=== PATIENT | female | born 1940 | race Caucasian/White ===

== ENCOUNTER 2020-02-04 11:29 | Inpatient (IN) ==
[2020-02-04 12:12] LABS: Basophils % 0.2 %; Eosinophils % 0.1 %; Hematocrit 39.6 % (35.3-44.9); Hemoglobin 13.7 g/dL (11.5-15.4); Immature Granulocytes % 0.8 % (0-4); Lymphocytes % 4.9 %; Mean Corpuscular HGB Conc 34.6 g/dL (31.6-35.5); Mean Corpuscular Hemoglobin 32.5 pg (28.0-33.3); Mean Corpuscular Volume 93.8 fL (83.0-100.0); Mean Platelet Volume 10.9 fL (9.4-12.4); Monocytes # 1.1 K/mcL (0.0-1.3); Monocytes % 5.7 %; Neutrophils # 17.1 K/mcL (1.6-8.9); Platelet Count 183 K/mcL (140-400); Red Blood Count 4.22 M/mcL (3.82-4.97); Segmented Neutrophils % 88.3 %; White Blood Count 19.4 K/mcL (4.3-11.1)
[2020-02-04 12:24] LABS: BUN/Creatinine Ratio 24 (6-26); Blood Urea Nitrogen 62 mg/dL (8-23); Calcium 8.8 mg/dL (8.6-10.3); Carbon Dioxide 20 mEq/L (23-29); Chloride 95 mEq/L (98-107); Glucose 410 mg/dL (70-105); Osmolality,Calculated 313 (280-300); Potassium 2.9 mEq/L (3.5-5.1); Sodium 134 mEq/L (136-145); eGFR For African Americans 21 (> 60); eGFR For Non-African Americans 18 (> 60)
[2020-02-04 12:25] LABS: Troponin I < 0.03 ng/mL (< 0.04)
[2020-02-04] MEDS ORDERED: 0.9 % Sodium Chloride 500 ML IVC ONE (12:27)
[2020-02-04] MEDS ORDERED: Insulin Regular, Human 100 UNIT/ML SQ ONE (12:44)
[2020-02-04] MEDS ORDERED: Naloxone 0.4 MG/ML INJ IVP PRN (14:52)
[2020-02-04] MEDS ORDERED: Mag Hydrox/Al Hydrox/Simeth 30 ML UDC PO PRN (14:52)
[2020-02-04] MEDS ORDERED: Ondansetron ODT 4 MG TAB.RAPDIS SL PRN (14:52)
[2020-02-04] MEDS ORDERED: Dextrose Gel 15 GM/37.5 ML TUBE PO PRN ×2 (14:54)
[2020-02-04] MEDS ORDERED: D5% in Water 1,000 ML IVC PRN (14:54)
[2020-02-04] MEDS ORDERED: *HR* Dextrose 50 % in Water (Vial) 50 ML VIAL IVP PRN (14:54)
[2020-02-04] MEDS: 0.9 % Sodium Chloride 1,000 ML IVC SCH (16:44)
[2020-02-04] MEDS: Aspirin 325 MG TABLET PO SCH (16:44)
[2020-02-04] MEDS: Insulin LISPRO 300 UNITS/3 ML VIAL SQ SCH ×2 (16:45→20:01)
[2020-02-04 17:20] LABS: Bilirubin,Urine Negative (Negative); Blood,Urine Large (Negative); Clarity,Urine Turbid (Clear); Color,Urine Yellow (Yellow); Glucose,Urine (UA) Normal (Normal); Ketones,Urine Negative (Negative); Leukocyte Esterase,Urine Large (Negative); Nitrite,Urine Negative (Negative); Protein,Urine 100 mg/dL (Neg-Trace); Specific Gravity,Urine 1.025 (1.010-1.025); Urobilinogen,Urine Normal (Normal)
[2020-02-04 18:11] LABS: Bacteria,Urine Many per hpf (None-Few); RBC,Urine 30-50 per hpf (0-3); Renal Epithelial Cells,Urine Moderate per hpf (None-Few); Squamous Epithelial Cell,Urine Moderate per lpf (None-Few); WBC,Urine TNTC per hpf (0-3)
[2020-02-04] MEDS ORDERED: *HR* Heparin 5,000 UNIT/ML VIAL ONE (18:38)
[2020-02-04] MEDS: *HR* Heparin 5,000 UNIT/ML VIAL SQ SCH (18:39)
[2020-02-04 20:48] LABS: Estimated Average Glucose 177 mg/dl; Hemoglobin A1C 7.8 %
[2020-02-05] MEDS: 0.9 % Sodium Chloride 1,000 ML IVC SCH ×4 (03:01→21:10)
[2020-02-05] MEDS: *HR* Heparin 5,000 UNIT/ML VIAL SQ SCH ×2 (05:57→16:44)
[2020-02-05] MEDS: cefTRIAXone 2,000 MG in 0.9 % Sodium Chloride Mini Bag 100 ML IVPB SCH (07:54)
[2020-02-05] MEDS: Aspirin 325 MG TABLET PO SCH (07:55)
[2020-02-05] MEDS: Cholecalciferol (D-3) 1,000 UNIT (25MCG) TABLET PO SCH (07:55)
[2020-02-05] MEDS: Insulin LISPRO 300 UNITS/3 ML VIAL SQ SCH ×4 (07:55→21:10)
[2020-02-05 08:00] LABS: Basophils % 0.2 %; Eosinophils % 0.3 %; Hematocrit 34.2 % (35.3-44.9); Immature Granulocytes % 0.5 % (0-4); Lymphocytes # 1.1 K/mcL (0.6-4.6); Lymphocytes % 9.5 %; Mean Corpuscular HGB Conc 35.1 g/dL (31.6-35.5); Mean Corpuscular Hemoglobin 32.6 pg (28.0-33.3); Mean Corpuscular Volume 92.9 fL (83.0-100.0); Mean Platelet Volume 10.7 fL (9.4-12.4); Monocytes # 1.2 K/mcL (0.0-1.3); Monocytes % 10.1 %; Neutrophils # 9.1 K/mcL (1.6-8.9); Platelet Count 135 K/mcL (140-400); Red Blood Count 3.68 M/mcL (3.82-4.97); Red Cell Distribution Width 11.9 % (11.5-14.5); Segmented Neutrophils % 79.4 %; White Blood Count 11.4 K/mcL (4.3-11.1)
[2020-02-05 08:41] LABS: Calcium 8.2 mg/dL (8.6-10.3); Potassium 2.7 mEq/L (3.5-5.1)
[2020-02-05 09:48] LABS: Chol/HDL Ratio 6.4 (0-4.9)
[2020-02-05] MEDS ORDERED: 0.9 % Sodium Chloride 500 ML IV ONE (11:20)
[2020-02-05] MEDS: Insulin DETEMIR 100 UNIT/ML X5UNITS SQ SCH (21:09)
[2020-02-06] MEDS: *HR* Heparin 5,000 UNIT/ML VIAL SQ SCH ×2 (05:37→17:53)
[2020-02-06] MEDS: 0.9 % Sodium Chloride 1,000 ML IVC SCH (05:37)
[2020-02-06 08:05] LABS: Hemoglobin 12.1 g/dL (11.5-15.4); Mean Corpuscular HGB Conc 34.6 g/dL (31.6-35.5); Mean Corpuscular Hemoglobin 32.4 pg (28.0-33.3); Mean Corpuscular Volume 93.6 fL (83.0-100.0); Mean Platelet Volume 10.4 fL (9.4-12.4); Platelet Count 131 K/mcL (140-400); Red Blood Count 3.74 M/mcL (3.82-4.97); Red Cell Distribution Width 11.9 % (11.5-14.5); White Blood Count 10.8 K/mcL (4.3-11.1)
[2020-02-06 08:21] LABS: Calcium 8.3 mg/dL (8.6-10.3); Potassium 3.1 mEq/L (3.5-5.1)
[2020-02-06] MEDS: cefTRIAXone 2,000 MG in 0.9 % Sodium Chloride Mini Bag 100 ML IVPB SCH (09:05)
[2020-02-06] MEDS: Aspirin 325 MG TABLET PO SCH (09:07)
[2020-02-06] MEDS: Cholecalciferol (D-3) 1,000 UNIT (25MCG) TABLET PO SCH (09:07)
[2020-02-06] MEDS: Insulin LISPRO 300 UNITS/3 ML VIAL SQ SCH ×4 (09:08→20:27)
[2020-02-06 10:16] LABS: Bilirubin,Urine Negative (Negative); Blood,Urine Trace-intact (Negative); Clarity,Urine Slightly Cloudy (Clear); Glucose,Urine (UA) Normal (Normal); Ketones,Urine Negative (Negative); Leukocyte Esterase,Urine Moderate (Negative); Nitrite,Urine Negative (Negative); PH,Urine 5.5 pH Units (5.0-8.0); Protein,Urine Negative (Neg-Trace); Specific Gravity,Urine 1.015 (1.010-1.025); Urobilinogen,Urine Normal (Normal)
[2020-02-06 10:24] LABS: Color,Urine Light Yellow (Yellow)
[2020-02-06 10:25] LABS: Bacteria,Urine Moderate per hpf (None-Few); RBC,Urine 0-3 per hpf (0-3); Squamous Epithelial Cell,Urine Few per lpf (None-Few); WBC,Urine 50-100 per hpf (0-3)
[2020-02-06] MEDS: Insulin DETEMIR 100 UNIT/ML X5UNITS SQ SCH (20:26)
[2020-02-07] MEDS: *HR* Heparin 5,000 UNIT/ML VIAL SQ SCH (05:55)
[2020-02-07 06:47] VITALS: BP 122/77
[2020-02-07 07:45] LABS: Hematocrit 33.1 % (35.3-44.9); Hemoglobin 11.9 g/dL (11.5-15.4); Mean Corpuscular Hemoglobin 33.1 pg (28.0-33.3); Mean Corpuscular Volume 91.9 fL (83.0-100.0); Mean Platelet Volume 10.4 fL (9.4-12.4); Platelet Count 125 K/mcL (140-400); Red Cell Distribution Width 11.7 % (11.5-14.5); White Blood Count 8.5 K/mcL (4.3-11.1)
[2020-02-07] MEDS: Aspirin 325 MG TABLET PO SCH (08:31)
[2020-02-07] MEDS: Cholecalciferol (D-3) 1,000 UNIT (25MCG) TABLET PO SCH (08:32)
[2020-02-07] MEDS: Insulin LISPRO 300 UNITS/3 ML VIAL SQ SCH (08:33)
[2020-02-07] MEDS: cefTRIAXone 2,000 MG in 0.9 % Sodium Chloride Mini Bag 100 ML IVPB SCH (08:33)
[2020-02-07 09:10] LABS: Potassium 3.5 mEq/L (3.5-5.1)
[2020-02-07 09:50] LABS: Calcium 8.5 mg/dL (8.6-10.3)
== END 2020-02-07 11:13 | disposition other institution (70) | DRG 690 ==
LOC: EMEROOPIK 11:29 → INPPIK 11:29
PROVIDERS: ADMIT Family Medicine; ATTEND Family Medicine

== ENCOUNTER 2020-02-22 18:36 | Inpatient (IN) ==
[2020-02-23] MEDS ORDERED: Nitroglycerin 0.4 MG TAB.SUBL SL PRN (12:11)
[2020-02-23] MEDS ORDERED: *HR* Dextrose 50 % in Water (Vial) 50 ML VIAL IVP PRN (12:14)
[2020-02-23] MEDS ORDERED: Dextrose Gel 15 GM/37.5 ML TUBE PO PRN ×2 (12:14)
[2020-02-23] MEDS ORDERED: D5% in Water 1,000 ML IVC PRN (12:14)
[2020-02-23] MEDS: Insulin LISPRO 300 UNITS/3 ML VIAL SQ SCH ×2 (16:38→20:37)
[2020-02-23] MEDS: GlipiZIDE 5 MG TABLET PO SCH (16:51)
[2020-02-23] MEDS: Insulin DETEMIR 100 UNIT/ML X5UNITS SQ SCH (20:37)
[2020-02-24] MEDS: Insulin LISPRO 300 UNITS/3 ML VIAL SQ SCH ×5 (07:18→20:22)
[2020-02-24 07:49] LABS: Basophils % 0.4 %; Eosinophils # 0.2 K/mcL (0.0-0.6); Eosinophils % 2.5 %; Hematocrit 39.3 % (35.3-44.9); Immature Granulocytes % 0.3 % (0-4); Lymphocytes # 1.6 K/mcL (0.6-4.6); Lymphocytes % 22.7 %; Mean Corpuscular HGB Conc 33.1 g/dL (31.6-35.5); Mean Corpuscular Hemoglobin 31.8 pg (28.0-33.3); Mean Corpuscular Volume 96.1 fL (83.0-100.0); Mean Platelet Volume 9.9 fL (9.4-12.4); Monocytes % 14.9 %; Neutrophils # 4.1 K/mcL (1.6-8.9); Platelet Count 181 K/mcL (140-400); Red Blood Count 4.09 M/mcL (3.82-4.97); Red Cell Distribution Width 12.8 % (11.5-14.5); Segmented Neutrophils % 59.2 %; White Blood Count 6.9 K/mcL (4.3-11.1)
[2020-02-24 07:56] LABS: Calcium 9.5 mg/dL (8.6-10.3); Potassium 4.1 mEq/L (3.5-5.1)
[2020-02-24] MEDS: Losartan/HCTZ 50-12.5 TABLET PO SCH (08:18)
[2020-02-24] MEDS: Aspirin 325 MG TABLET PO SCH (08:18)
[2020-02-24] MEDS: GlipiZIDE 5 MG TABLET PO SCH ×2 (08:18→16:50)
[2020-02-24] MEDS: Cholecalciferol (D-3) 1,000 UNIT (25MCG) TABLET PO SCH (08:18)
[2020-02-24] MEDS: Furosemide 40 MG TABLET PO SCH (08:19)
[2020-02-24] MEDS: Insulin DETEMIR 100 UNIT/ML X5UNITS SQ SCH ×2 (08:55→20:22)
[2020-02-25] MEDS: Cholecalciferol (D-3) 1,000 UNIT (25MCG) TABLET PO SCH (08:24)
[2020-02-25] MEDS: Furosemide 40 MG TABLET PO SCH (08:25)
[2020-02-25] MEDS: Aspirin 325 MG TABLET PO SCH (08:25)
[2020-02-25] MEDS: Insulin LISPRO 300 UNITS/3 ML VIAL SQ SCH ×4 (08:26→22:00)
[2020-02-25] MEDS: GlipiZIDE 5 MG TABLET PO SCH ×2 (08:26→16:36)
[2020-02-25] MEDS: Insulin DETEMIR 100 UNIT/ML X5UNITS SQ SCH ×2 (08:26→22:01)
[2020-02-25] MEDS: Losartan/HCTZ 50-12.5 TABLET PO SCH (08:33)
[2020-02-25] MEDS: *HR* OxyCODONE/APAP 5/325 TABLET PO PRN ×2 (10:06→22:00)
[2020-02-25] MEDS: predniSONE 20 MG TABLET PO SCH (15:35)
[2020-02-25] MEDS: Colchicine 0.6 MG TABLET PO SCH (22:01)
[2020-02-26] MEDS: Aspirin 325 MG TABLET PO SCH (08:42)
[2020-02-26] MEDS: predniSONE 20 MG TABLET PO SCH (08:42)
[2020-02-26] MEDS: Cholecalciferol (D-3) 1,000 UNIT (25MCG) TABLET PO SCH (08:42)
[2020-02-26] MEDS: GlipiZIDE 5 MG TABLET PO SCH ×2 (08:42→17:23)
[2020-02-26] MEDS: Colchicine 0.6 MG TABLET PO SCH ×2 (08:43→20:13)
[2020-02-26] MEDS: Furosemide 40 MG TABLET PO SCH (08:43)
[2020-02-26] MEDS: Insulin LISPRO 300 UNITS/3 ML VIAL SQ SCH ×4 (08:51→20:13)
[2020-02-26] MEDS: Insulin DETEMIR 100 UNIT/ML X5UNITS SQ SCH ×2 (08:51→20:13)
[2020-02-26] MEDS: Losartan/HCTZ 50-12.5 TABLET PO SCH (09:00)
[2020-02-27] MEDS: Aspirin 325 MG TABLET PO SCH (08:33)
[2020-02-27] MEDS: Insulin LISPRO 300 UNITS/3 ML VIAL SQ SCH ×5 (08:33→20:51)
[2020-02-27] MEDS: Insulin DETEMIR 100 UNIT/ML X5UNITS SQ SCH ×2 (08:33→20:51)
[2020-02-27] MEDS: Losartan/HCTZ 50-12.5 TABLET PO SCH (08:34)
[2020-02-27] MEDS: Furosemide 40 MG TABLET PO SCH (08:34)
[2020-02-27] MEDS: GlipiZIDE 5 MG TABLET PO SCH ×2 (08:34→17:22)
[2020-02-27] MEDS: Cholecalciferol (D-3) 1,000 UNIT (25MCG) TABLET PO SCH (08:34)
[2020-02-27] MEDS: predniSONE 20 MG TABLET PO SCH (08:34)
[2020-02-27] MEDS: Colchicine 0.6 MG TABLET PO SCH (08:34)
[2020-02-27] MEDS: *HR* OxyCODONE/APAP 5/325 TABLET PO PRN (13:38)
[2020-02-27] MEDS ORDERED: polyethylene glycoL 3350 17 GM POWD.PACK PO PRN (14:48)
[2020-02-28] MEDS: Insulin DETEMIR 100 UNIT/ML X5UNITS SQ SCH ×2 (08:52→20:38)
[2020-02-28] MEDS: GlipiZIDE 5 MG TABLET PO SCH ×2 (08:52→16:53)
[2020-02-28] MEDS: Aspirin 325 MG TABLET PO SCH (08:52)
[2020-02-28] MEDS: Furosemide 40 MG TABLET PO SCH (08:52)
[2020-02-28] MEDS: Insulin LISPRO 300 UNITS/3 ML VIAL SQ SCH ×4 (08:52→20:38)
[2020-02-28] MEDS: Cholecalciferol (D-3) 1,000 UNIT (25MCG) TABLET PO SCH (08:52)
[2020-02-28] MEDS: predniSONE 20 MG TABLET PO SCH (08:52)
[2020-02-28] MEDS: Losartan/HCTZ 50-12.5 TABLET PO SCH (09:00)
[2020-02-28] MEDS: Colchicine 0.6 MG TABLET PO SCH (09:00)
[2020-02-28] MEDS ORDERED: Bisacodyl 10 MG RECTAL SUPPOSITORY RC ONE (09:19)
[2020-02-29] MEDS: Colchicine 0.6 MG TABLET PO SCH (07:46)
[2020-02-29] MEDS: Aspirin 325 MG TABLET PO SCH (07:46)
[2020-02-29] MEDS: GlipiZIDE 5 MG TABLET PO SCH ×2 (07:46→17:28)
[2020-02-29] MEDS: predniSONE 20 MG TABLET PO SCH (07:48)
[2020-02-29] MEDS: Cholecalciferol (D-3) 1,000 UNIT (25MCG) TABLET PO SCH (07:49)
[2020-02-29] MEDS: Insulin LISPRO 300 UNITS/3 ML VIAL SQ SCH ×4 (07:52→19:30)
[2020-02-29] MEDS: Insulin DETEMIR 100 UNIT/ML X5UNITS SQ SCH ×2 (07:55→09:32)
[2020-03-01] MEDS: Insulin DETEMIR 100 UNIT/ML X5UNITS SQ SCH (09:48)
[2020-03-01] MEDS: Colchicine 0.6 MG TABLET PO SCH (09:48)
[2020-03-01] MEDS: GlipiZIDE 5 MG TABLET PO SCH ×2 (09:49→16:39)
[2020-03-01] MEDS: predniSONE 20 MG TABLET PO SCH (09:50)
[2020-03-01] MEDS: Aspirin 325 MG TABLET PO SCH (09:50)
[2020-03-01] MEDS: Cholecalciferol (D-3) 1,000 UNIT (25MCG) TABLET PO SCH (09:51)
[2020-03-01] MEDS: Insulin LISPRO 300 UNITS/3 ML VIAL SQ SCH ×4 (09:58→19:40)
[2020-03-01] MEDS: *HR* OxyCODONE/APAP 5/325 TABLET PO PRN (14:32)
[2020-03-02] MEDS: Insulin LISPRO 300 UNITS/3 ML VIAL SQ SCH ×4 (08:53→20:52)
[2020-03-02] MEDS: Cholecalciferol (D-3) 1,000 UNIT (25MCG) TABLET PO SCH (08:54)
[2020-03-02] MEDS: Aspirin 325 MG TABLET PO SCH (08:54)
[2020-03-02] MEDS: Losartan/HCTZ 50-12.5 TABLET PO SCH (08:54)
[2020-03-02] MEDS: Insulin DETEMIR 100 UNIT/ML X5UNITS SQ SCH (08:55)
[2020-03-02] MEDS: Furosemide 40 MG TABLET PO SCH (08:55)
[2020-03-02] MEDS: predniSONE 20 MG TABLET PO SCH (08:55)
[2020-03-02] MEDS: GlipiZIDE 5 MG TABLET PO SCH ×2 (08:55→17:11)
[2020-03-02] MEDS: Colchicine 0.6 MG TABLET PO SCH (08:55)
[2020-03-03] MEDS: Insulin LISPRO 300 UNITS/3 ML VIAL SQ SCH ×4 (08:40→21:02)
[2020-03-03] MEDS: GlipiZIDE 5 MG TABLET PO SCH ×2 (08:41→18:01)
[2020-03-03] MEDS: Cholecalciferol (D-3) 1,000 UNIT (25MCG) TABLET PO SCH (08:41)
[2020-03-03] MEDS: Furosemide 40 MG TABLET PO SCH (08:41)
[2020-03-03] MEDS: Colchicine 0.6 MG TABLET PO SCH (08:41)
[2020-03-03] MEDS: Insulin DETEMIR 100 UNIT/ML X5UNITS SQ SCH (08:41)
[2020-03-03] MEDS: Losartan/HCTZ 50-12.5 TABLET PO SCH (08:42)
[2020-03-03] MEDS: predniSONE 20 MG TABLET PO SCH (08:42)
[2020-03-03] MEDS: Aspirin 325 MG TABLET PO SCH (08:42)
[2020-03-04 06:45] VITALS: BP 108/70
[2020-03-04] MEDS: Insulin DETEMIR 100 UNIT/ML X5UNITS SQ SCH (09:26)
[2020-03-04] MEDS: GlipiZIDE 5 MG TABLET PO SCH (09:27)
[2020-03-04] MEDS: Aspirin 325 MG TABLET PO SCH (09:28)
[2020-03-04] MEDS: Cholecalciferol (D-3) 1,000 UNIT (25MCG) TABLET PO SCH (09:28)
[2020-03-04] MEDS: predniSONE 20 MG TABLET PO SCH (09:31)
[2020-03-04] MEDS: Insulin LISPRO 300 UNITS/3 ML VIAL SQ SCH ×2 (09:51→11:29)
[2020-03-04] MEDS: Losartan/HCTZ 50-12.5 TABLET PO SCH (10:47)
[2020-03-04] MEDS: Furosemide 40 MG TABLET PO SCH (10:47)
[2020-03-04] MEDS: Colchicine 0.6 MG TABLET PO SCH (11:29)
== END 2020-03-04 16:45 | DRG 945 ==
LOC: INPPIK 18:36
PROVIDERS: ADMIT Family Medicine; ATTEND Family Medicine

== ENCOUNTER 2020-04-04 10:33 | Inpatient (IN) ==
[2020-04-04 11:10] LABS: Basophils % 0.5 %; Eosinophils # 0.1 K/mcL (0.0-0.6); Eosinophils % 0.6 %; Hematocrit 45.7 % (35.3-44.9); Hemoglobin 15.5 g/dL (11.5-15.4); Immature Granulocytes % 0.5 % (0-4); Lymphocytes # 0.9 K/mcL (0.6-4.6); Lymphocytes % 10.2 %; Mean Corpuscular HGB Conc 33.9 g/dL (31.6-35.5); Mean Corpuscular Volume 94.2 fL (83.0-100.0); Mean Platelet Volume 9.9 fL (9.4-12.4); Monocytes % 11.8 %; Neutrophils # 6.7 K/mcL (1.6-8.9); Platelet Count 133 K/mcL (140-400); Red Blood Count 4.85 M/mcL (3.82-4.97); Red Cell Distribution Width 12.7 % (11.5-14.5); Segmented Neutrophils % 76.4 %; White Blood Count 8.7 K/mcL (4.3-11.1)
[2020-04-04 11:24] LABS: Calcium 9.6 mg/dL (8.6-10.3); Potassium 4.1 mEq/L (3.5-5.1); Uric Acid 6.8 mg/dL (2.3-7.6)
[2020-04-04 11:42] LABS: Platelet Estimate Normal (Normal)
[2020-04-04] MEDS ORDERED: Acetaminophen 325 MG TABLET PO PRN (14:59)
[2020-04-04] MEDS ORDERED: Naloxone 0.4 MG/ML INJ IVP PRN (14:59)
[2020-04-04] MEDS ORDERED: MOM Conc 10 ML UD.LIQ PO PRN (14:59)
[2020-04-04] MEDS ORDERED: Ondansetron ODT 4 MG TAB.RAPDIS SL PRN (14:59)
[2020-04-04] MEDS ORDERED: Dextrose Gel 15 GM/37.5 ML TUBE PO PRN ×2 (15:05)
[2020-04-04] MEDS ORDERED: D5% in Water 1,000 ML IVC PRN (15:05)
[2020-04-04] MEDS ORDERED: *HR* Dextrose 50 % in Water (Vial) 50 ML VIAL IVP PRN (15:05)
[2020-04-04] MEDS: 0.9 % Sodium Chloride 1,000 ML IVC SCH (19:36)
[2020-04-04] MEDS: Insulin LISPRO 300 UNITS/3 ML VIAL SQ SCH (19:37)
[2020-04-04] MEDS: *HR* OxyCODONE/APAP 5/325 TABLET PO PRN (22:07)
[2020-04-05 03:28] LABS: Bilirubin,Urine Small (Negative); Blood,Urine Negative (Negative); Clarity,Urine Slightly Cloudy (Clear); Color,Urine Yellow (Yellow); Glucose,Urine (UA) Normal (Normal); Ketones,Urine Negative (Negative); Leukocyte Esterase,Urine Negative (Negative); Nitrite,Urine Negative (Negative); Protein,Urine 30 mg/dL (Neg-Trace); Specific Gravity,Urine 1.025 (1.010-1.025); Urobilinogen,Urine Normal (Normal)
[2020-04-05 03:52] LABS: Hyaline Casts,Urine Few per lpf (None Seen); Mucus,Urine Moderate per lpf (None-Few)
[2020-04-05 03:54] LABS: Bacteria,Urine Moderate per hpf (None-Few); RBC,Urine 0-3 per hpf (0-3); WBC,Urine 15-30 per hpf (0-3)
[2020-04-05 03:56] LABS: Renal Epithelial Cells,Urine Few per hpf (None-Few); Squamous Epithelial Cell,Urine Many per hpf (None-Few)
[2020-04-05 07:21] LABS: Hematocrit 40.8 % (35.3-44.9); Hemoglobin 13.7 g/dL (11.5-15.4); Mean Corpuscular HGB Conc 33.6 g/dL (31.6-35.5); Mean Corpuscular Hemoglobin 31.9 pg (28.0-33.3); Mean Corpuscular Volume 95.1 fL (83.0-100.0); Mean Platelet Volume 10.1 fL (9.4-12.4); Platelet Count 129 K/mcL (140-400); Red Blood Count 4.29 M/mcL (3.82-4.97); Red Cell Distribution Width 12.8 % (11.5-14.5); White Blood Count 6.7 K/mcL (4.3-11.1)
[2020-04-05 07:24] LABS: Alanine Aminotransferase 8 Units/L (7-52); Albumin 3.4 g/dL (3.5-5.7); Albumin/Globulin Ratio 1.2 (1.1-2.2); Alkaline Phosphatase 16 Units/L (34-104); Aspartate Amino Transferase 11 Units/L (13-39); BUN/Creatinine Ratio 14 (6-26); Blood Urea Nitrogen 14 mg/dL (8-23); Calcium 8.8 mg/dL (8.6-10.3); Carbon Dioxide 28 mEq/L (23-29); Chloride 99 mEq/L (98-107); Globulin 2.8 g/dL (2.4-3.5); Glucose 158 mg/dL (70-105); Magnesium 1.7 mg/dL (1.6-2.6); Osmolality,Calculated 290 (280-300); Potassium 3.7 mEq/L (3.5-5.1); Sodium 138 mEq/L (136-145); Total Protein 6.2 g/dL (6.4-8.9); eGFR For African Americans > 60 (> 60); eGFR For Non-African Americans 53 (> 60)
[2020-04-05] MEDS: Insulin LISPRO 300 UNITS/3 ML VIAL SQ SCH ×3 (08:52→16:22)
[2020-04-05] MEDS: *HR* OxyCODONE/APAP 5/325 TABLET PO PRN ×2 (08:52→19:29)
[2020-04-05] MEDS: 0.9 % Sodium Chloride 1,000 ML IVC SCH (08:57)
[2020-04-05] MEDS ORDERED: *HR* Enoxaparin 80 MG/0.8 ML SYRINGE SQ SCH (18:00)
[2020-04-06] MEDS: *HR* OxyCODONE/APAP 5/325 TABLET PO PRN ×2 (03:27→12:44)
[2020-04-06] MEDS: *HR* Enoxaparin 40 MG/0.4 ML SYRINGE SQ SCH (05:40)
[2020-04-06 05:56] LABS: Basophils % 0.4 %; Eosinophils # 0.1 K/mcL (0.0-0.6); Eosinophils % 1.8 %; Hematocrit 38.1 % (35.3-44.9); Hemoglobin 12.9 g/dL (11.5-15.4); Immature Granulocytes % 0.4 % (0-4); Lymphocytes # 1.1 K/mcL (0.6-4.6); Lymphocytes % 18.8 %; Mean Corpuscular HGB Conc 33.9 g/dL (31.6-35.5); Mean Corpuscular Hemoglobin 31.9 pg (28.0-33.3); Mean Corpuscular Volume 94.3 fL (83.0-100.0); Mean Platelet Volume 10.1 fL (9.4-12.4); Monocytes # 0.9 K/mcL (0.0-1.3); Monocytes % 15.3 %; Neutrophils # 3.6 K/mcL (1.6-8.9); Platelet Count 129 K/mcL (140-400); Red Blood Count 4.04 M/mcL (3.82-4.97); Red Cell Distribution Width 12.5 % (11.5-14.5); Segmented Neutrophils % 63.3 %; White Blood Count 5.7 K/mcL (4.3-11.1)
[2020-04-06 06:08] LABS: BUN/Creatinine Ratio 13 (6-26); Blood Urea Nitrogen 12 mg/dL (8-23); Calcium 8.7 mg/dL (8.6-10.3); Carbon Dioxide 26 mEq/L (23-29); Chloride 101 mEq/L (98-107); Glucose 147 mg/dL (70-105); Osmolality,Calculated 286 (280-300); Potassium 3.6 mEq/L (3.5-5.1); Sodium 137 mEq/L (136-145); eGFR For African Americans > 60 (> 60); eGFR For Non-African Americans 58 (> 60)
[2020-04-06 06:18] LABS: Platelet Estimate Normal (Normal)
[2020-04-06] MEDS: Insulin LISPRO 300 UNITS/3 ML VIAL SQ SCH ×3 (09:09→16:35)
[2020-04-06] MEDS ORDERED: Insulin LISPRO 300 UNITS/3 ML VIAL SQ SCH (22:45)
[2020-04-07] MEDS: *HR* Enoxaparin 40 MG/0.4 ML SYRINGE SQ SCH (05:31)
[2020-04-07 06:00] VITALS: BP 142/89
[2020-04-07 08:00] LABS: Basophils % 0.3 %; Eosinophils # 0.1 K/mcL (0.0-0.6); Eosinophils % 2.1 %; Hematocrit 39.7 % (35.3-44.9); Hemoglobin 13.5 g/dL (11.5-15.4); Immature Granulocytes % 0.3 % (0-4); Lymphocytes # 1.2 K/mcL (0.6-4.6); Lymphocytes % 21.5 %; Mean Corpuscular Hemoglobin 31.4 pg (28.0-33.3); Mean Corpuscular Volume 92.3 fL (83.0-100.0); Mean Platelet Volume 9.8 fL (9.4-12.4); Monocytes # 0.7 K/mcL (0.0-1.3); Monocytes % 12.9 %; Neutrophils # 3.6 K/mcL (1.6-8.9); Platelet Count 156 K/mcL (140-400); Red Cell Distribution Width 12.4 % (11.5-14.5); Segmented Neutrophils % 62.9 %; White Blood Count 5.7 K/mcL (4.3-11.1)
[2020-04-07] MEDS: Insulin LISPRO 300 UNITS/3 ML VIAL SQ SCH ×2 (08:07→11:55)
[2020-04-07 08:40] LABS: BUN/Creatinine Ratio 10 (6-26); Blood Urea Nitrogen 10 mg/dL (8-23); Calcium 9.3 mg/dL (8.6-10.3); Carbon Dioxide 23 mEq/L (23-29); Chloride 100 mEq/L (98-107); Glucose 252 mg/dL (70-105); Osmolality,Calculated 292 (280-300); Potassium 3.8 mEq/L (3.5-5.1); Sodium 137 mEq/L (136-145); eGFR For African Americans > 60 (> 60); eGFR For Non-African Americans 55 (> 60)
[2020-04-07] MEDS ORDERED: cefTRIAXone 1,000 MG in 0.9 % Sodium Chloride Mini Bag 100 ML IVPB SCH (11:00)
[2020-04-07 12:06] LABS: Bilirubin,Urine Negative (Negative); Blood,Urine Negative (Negative); Clarity,Urine Clear (Clear); Color,Urine Yellow (Yellow); Glucose,Urine (UA) 500 mg/dL (Normal); Ketones,Urine Negative (Negative); Leukocyte Esterase,Urine Trace (Negative); Nitrite,Urine Negative (Negative); Protein,Urine Negative (Neg-Trace); Specific Gravity,Urine 1.015 (1.010-1.025); Urobilinogen,Urine Normal (Normal)
[2020-04-07 12:14] LABS: Bacteria,Urine Few per hpf (None-Few); Squamous Epithelial Cell,Urine Few per hpf (None-Few)
[2020-04-07 12:15] LABS: Mucus,Urine Moderate per lpf (None-Few)
== END 2020-04-07 16:42 | DRG 558 ==
LOC: INPPIK 10:33 → EMEROOPIK 10:33 → INPPIK 16:01
PROVIDERS: ADMIT Emergency Medicine; ATTEND Emergency Medicine

== ENCOUNTER 2020-06-29 17:40 | Observation (INO) ==
[2020-06-29 18:45] LABS: Basophils % 0.4 %; Eosinophils # 0.2 K/mcL (0.0-0.6); Eosinophils % 1.4 %; Hematocrit 47.4 % (35.3-44.9); Immature Granulocytes % 0.4 % (0-4); Lymphocytes # 1.8 K/mcL (0.6-4.6); Lymphocytes % 16.1 %; Mean Corpuscular HGB Conc 33.8 g/dL (31.6-35.5); Mean Corpuscular Hemoglobin 31.6 pg (28.0-33.3); Mean Corpuscular Volume 93.7 fL (83.0-100.0); Mean Platelet Volume 10.1 fL (9.4-12.4); Monocytes % 9.1 %; Neutrophils # 8.2 K/mcL (1.6-8.9); Platelet Count 214 K/mcL (140-400); Red Blood Count 5.06 M/mcL (3.82-4.97); Segmented Neutrophils % 72.6 %; White Blood Count 11.3 K/mcL (4.3-11.1)
[2020-06-29 18:48] LABS: Bilirubin,Urine Negative (Negative); Blood,Urine Trace-intact (Negative); Clarity,Urine Clear (Clear); Color,Urine Yellow (Yellow); Glucose,Urine (UA) Normal (Normal); Ketones,Urine Negative (Negative); Leukocyte Esterase,Urine Trace (Negative); Nitrite,Urine Negative (Negative); Protein,Urine Negative (Neg-Trace); Specific Gravity,Urine 1.025 (1.010-1.025); Urobilinogen,Urine Normal (Normal)
[2020-06-29 18:49] LABS: Basophils # 0.1 K/mcL (0.0-0.2)
[2020-06-29 18:56] LABS: Amorphous Sediment,Urine Few per hpf (None-Few); Bacteria,Urine Few per hpf (None-Few); Hyaline Casts,Urine Few per lpf (None Seen); Mucus,Urine Few per lpf (None-Few); RBC,Urine 0-3 per hpf (0-3); Squamous Epithelial Cell,Urine Few per hpf (None-Few)
[2020-06-29] MEDS ORDERED: 0.9 % Sodium Chloride 1,000 ML IVC SCH (19:00)
[2020-06-29 19:05] LABS: Calcium 10.5 mg/dL (8.6-10.3)
[2020-06-29] MEDS ORDERED: NON-FORMULARY MEDICATION 1 EACH EACH (Alendronate Sodium [Fosamax] 70 MG) PO SCH (23:06)
[2020-06-29] MEDS ORDERED: Nitroglycerin 0.4 MG TAB.SUBL SL PRN (23:06)
[2020-06-29] MEDS ORDERED: Naloxone 0.4 MG/ML INJ IVP PRN (23:06)
[2020-06-29] MEDS ORDERED: Ondansetron 4 MG/2 ML VIAL IVP PRN (23:06)
[2020-06-29] MEDS: allopurinoL 100 MG TABLET PO SCH (23:28)
[2020-06-30] MEDS: 0.9 % Sodium Chloride 1,000 ML IVC SCH ×3 (00:41→12:00)
[2020-06-30 06:44] LABS: Basophils % 0.6 %; Eosinophils # 0.2 K/mcL (0.0-0.6); Eosinophils % 2.4 %; Hematocrit 39.6 % (35.3-44.9); Hemoglobin 13.5 g/dL (11.5-15.4); Immature Granulocytes % 0.3 % (0-4); Lymphocytes # 1.6 K/mcL (0.6-4.6); Mean Corpuscular HGB Conc 34.1 g/dL (31.6-35.5); Mean Corpuscular Hemoglobin 32.1 pg (28.0-33.3); Mean Corpuscular Volume 94.1 fL (83.0-100.0); Mean Platelet Volume 10.1 fL (9.4-12.4); Monocytes # 0.6 K/mcL (0.0-1.3); Monocytes % 10.3 %; Neutrophils # 3.8 K/mcL (1.6-8.9); Platelet Count 131 K/mcL (140-400); Red Blood Count 4.21 M/mcL (3.82-4.97); Segmented Neutrophils % 60.4 %; White Blood Count 6.2 K/mcL (4.3-11.1)
[2020-06-30 07:04] LABS: Calcium 8.9 mg/dL (8.6-10.3); Potassium 4.4 mEq/L (3.5-5.1)
[2020-06-30] MEDS ORDERED: GlipiZIDE 5 MG TABLET PO SCH (08:00)
[2020-06-30] MEDS: Insulin LISPRO 300 UNITS/3 ML VIAL SQ SCH ×4 (08:27→21:24)
[2020-06-30] MEDS: Colchicine 0.6 MG TABLET PO SCH (08:54)
[2020-06-30] MEDS: allopurinoL 100 MG TABLET PO SCH (08:54)
[2020-06-30] MEDS: Cholecalciferol (D-3) 1,000 UNIT (25MCG) TABLET PO SCH (08:55)
[2020-06-30] MEDS ORDERED: *HR* SitaGLIPtin 25 MG TABLET PO SCH (09:00)
[2020-06-30] MEDS ORDERED: NON-FORMULARY MEDICATION 1 EACH EACH (Nut.Tx.Gluc.Intoler,Lac-Fr,Soy [Glucerna] 1 CAN) PO SCH (09:00)
[2020-06-30] MEDS ORDERED: 0.9 % Sodium Chloride 250 ML IVC ONE (10:06)
[2020-06-30 11:54] LABS: Albumin 3.3 g/dL (3.5-5.7); Albumin/Globulin Ratio 1.6 (1.1-2.2); Bilirubin,Direct 0.1 mg/dL (0.0-0.2); Bilirubin,Indirect 0.4 mg/dL (0.0-1.0); Bilirubin,Total 0.5 mg/dL (0.3-1.0); Globulin 2.1 g/dL (2.4-3.5); Total Protein 5.4 g/dL (6.4-8.9)
[2020-06-30] MEDS: Nystatin POWDER 30 GM BOTTLE TP SCH ×3 (12:00→21:25)
[2020-06-30] MEDS ORDERED: *HR* Dextrose 50 % in Water (Vial) 50 ML VIAL IVP PRN (16:44)
[2020-06-30] MEDS ORDERED: Dextrose Gel 15 GM/37.5 ML TUBE PO PRN ×2 (16:44)
[2020-06-30] MEDS ORDERED: D5% in Water 1,000 ML IVC PRN (16:44)
[2020-06-30] MEDS ORDERED: cefTRIAXone 2,000 MG in 0.9 % Sodium Chloride Mini Bag 100 ML IVPB SCH (19:00)
[2020-07-01] MEDS: Insulin LISPRO 300 UNITS/3 ML VIAL SQ SCH ×4 (07:41→19:44)
[2020-07-01 07:46] LABS: Basophils % 0.5 %; Eosinophils # 0.2 K/mcL (0.0-0.6); Eosinophils % 3.5 %; Hemoglobin 13.6 g/dL (11.5-15.4); Lymphocytes # 1.1 K/mcL (0.6-4.6); Lymphocytes % 25.8 %; Mean Corpuscular HGB Conc 33.2 g/dL (31.6-35.5); Mean Corpuscular Hemoglobin 31.4 pg (28.0-33.3); Mean Corpuscular Volume 94.7 fL (83.0-100.0); Mean Platelet Volume 9.8 fL (9.4-12.4); Monocytes # 0.6 K/mcL (0.0-1.3); Monocytes % 12.9 %; Neutrophils # 2.5 K/mcL (1.6-8.9); Platelet Count 96 K/mcL (140-400); Red Blood Count 4.33 M/mcL (3.82-4.97); Red Cell Distribution Width 14.6 % (11.5-14.5); Segmented Neutrophils % 57.3 %; White Blood Count 4.3 K/mcL (4.3-11.1)
[2020-07-01] MEDS ORDERED: cloNIDine HCL 0.1 MG TABLET PO ONE (08:08)
[2020-07-01 08:53] LABS: Platelet Estimate Decreased (Normal)
[2020-07-01] MEDS: 0.9 % Sodium Chloride 1,000 ML IVC SCH (09:18)
[2020-07-01] MEDS: Cholecalciferol (D-3) 1,000 UNIT (25MCG) TABLET PO SCH (09:19)
[2020-07-01] MEDS: cephALEXin 250 MG CAPSULE PO SCH ×3 (09:19→20:18)
[2020-07-01] MEDS: allopurinoL 100 MG TABLET PO SCH (09:19)
[2020-07-01] MEDS: Colchicine 0.6 MG TABLET PO SCH (09:19)
[2020-07-01] MEDS: Nystatin POWDER 30 GM BOTTLE TP SCH ×3 (09:20→20:19)
[2020-07-01] MEDS ORDERED: Insulin LISPRO 300 UNITS/3 ML VIAL SQ ONE (12:00)
[2020-07-01 13:03] LABS: Calcium 8.8 mg/dL (8.6-10.3)
[2020-07-02 06:46] VITALS: BP 128/96
[2020-07-02 08:03] LABS: Basophils % 0.6 %; Eosinophils # 0.2 K/mcL (0.0-0.6); Eosinophils % 4.4 %; Hematocrit 42.6 % (35.3-44.9); Immature Granulocytes % 0.2 % (0-4); Lymphocytes # 1.7 K/mcL (0.6-4.6); Lymphocytes % 32.1 %; Mean Corpuscular HGB Conc 32.9 g/dL (31.6-35.5); Mean Corpuscular Hemoglobin 31.4 pg (28.0-33.3); Mean Corpuscular Volume 95.5 fL (83.0-100.0); Mean Platelet Volume 10.1 fL (9.4-12.4); Monocytes # 0.6 K/mcL (0.0-1.3); Monocytes % 10.6 %; Neutrophils # 2.8 K/mcL (1.6-8.9); Platelet Count 110 K/mcL (140-400); Red Blood Count 4.46 M/mcL (3.82-4.97); Red Cell Distribution Width 14.6 % (11.5-14.5); Segmented Neutrophils % 52.1 %; White Blood Count 5.3 K/mcL (4.3-11.1)
[2020-07-02] MEDS: Cholecalciferol (D-3) 1,000 UNIT (25MCG) TABLET PO SCH (08:09)
[2020-07-02] MEDS: Colchicine 0.6 MG TABLET PO SCH (08:09)
[2020-07-02] MEDS: cephALEXin 250 MG CAPSULE PO SCH (08:09)
[2020-07-02] MEDS: Nystatin POWDER 30 GM BOTTLE TP SCH (08:10)
[2020-07-02] MEDS: allopurinoL 100 MG TABLET PO SCH (08:10)
[2020-07-02] MEDS: Insulin LISPRO 300 UNITS/3 ML VIAL SQ SCH (08:11)
[2020-07-02 08:15] LABS: Calcium 9.1 mg/dL (8.6-10.3); Potassium 4.1 mEq/L (3.5-5.1)
[2020-07-02 08:52] LABS: Platelet Estimate Decreased (Normal)
== END 2020-07-02 11:00 | disposition home health service (06) ==
LOC: EMEROOPIK 17:40 → INPPIK 17:40
PROVIDERS: ADMIT Family Medicine; ATTEND Family Medicine

== ENCOUNTER 2021-01-20 14:07 | Inpatient (IN) ==
[2021-01-20] MEDS ORDERED: 0.9 % Sodium Chloride 1,000 ML IVC ONE (15:07)
[2021-01-20 15:13] LABS: Bilirubin,Urine Negative (Negative); Blood,Urine Large (Negative); Clarity,Urine Slightly Cloudy (Clear); Color,Urine Yellow (Yellow); Glucose,Urine (UA) Normal (Normal); Ketones,Urine Negative (Negative); Leukocyte Esterase,Urine Moderate (Negative); Nitrite,Urine Negative (Negative); Protein,Urine Negative (Neg-Trace); Specific Gravity,Urine 1.015 (1.010-1.025); Urobilinogen,Urine Normal (Normal)
[2021-01-20 15:19] LABS: RBC,Urine 30-50 per hpf (0-3); Squamous Epithelial Cell,Urine Few per hpf (None-Few); WBC,Urine 0-3 per hpf (0-3)
[2021-01-20 15:31] LABS: Basophils % 0.2 %; Eosinophils % 0.4 %; Hematocrit 45.8 % (35.3-44.9); Hemoglobin 15.6 g/dL (11.5-15.4); Immature Granulocytes % 0.3 % (0-4); Lymphocytes # 0.9 K/mcL (0.6-4.6); Lymphocytes % 10.3 %; Mean Corpuscular HGB Conc 34.1 g/dL (31.6-35.5); Mean Corpuscular Hemoglobin 33.5 pg (28.0-33.3); Mean Corpuscular Volume 98.3 fL (83.0-100.0); Mean Platelet Volume 10.9 fL (9.4-12.4); Monocytes # 0.6 K/mcL (0.0-1.3); Neutrophils # 7.6 K/mcL (1.6-8.9); Platelet Count 132 K/mcL (140-400); Red Blood Count 4.66 M/mcL (3.82-4.97); Red Cell Distribution Width 13.1 % (11.5-14.5); Segmented Neutrophils % 82.8 %; White Blood Count 9.2 K/mcL (4.3-11.1)
[2021-01-20 15:50] LABS: Calcium 10.2 mg/dL (8.6-10.3); Potassium 4.3 mEq/L (3.5-5.1)
[2021-01-20] MEDS ORDERED: Azithromycin 500 MG in 0.9 % Sodium Chloride 250 ML IVPB ONE (15:56)
[2021-01-20] MEDS ORDERED: Ondansetron 4 MG/2 ML VIAL IVP ONE (16:02)
[2021-01-20] MEDS ORDERED: D5% in Water 1,000 ML IVC PRN (16:30)
[2021-01-20] MEDS ORDERED: *HR* Dextrose 50 % in Water (Vial) 50 ML VIAL IVP PRN (16:30)
[2021-01-20] MEDS ORDERED: Naloxone 0.4 MG/ML INJ IVP PRN (16:30)
[2021-01-20] MEDS ORDERED: Acetaminophen 325 MG TABLET PO PRN (16:30)
[2021-01-20] MEDS ORDERED: Dextrose Gel 15 GM/37.5 ML TUBE PO PRN ×2 (16:30)
[2021-01-20] MEDS ORDERED: Ondansetron 4 MG/2 ML VIAL IVP PRN (16:30)
[2021-01-20] MEDS: 0.9 % Sodium Chloride 1,000 ML IVC SCH (18:04)
[2021-01-20] MEDS: Insulin LISPRO 300 UNITS/3 ML VIAL SUBQ SCH (18:04)
[2021-01-20] MEDS ORDERED: Metoclopramide 10 MG/2 ML VIAL IVP PRN (18:53)
[2021-01-21] MEDS: 0.9 % Sodium Chloride 1,000 ML IVC SCH (03:41)
[2021-01-21 06:59] LABS: Hemoglobin 12.8 g/dL (11.5-15.4); Mean Corpuscular HGB Conc 32.8 g/dL (31.6-35.5); Mean Corpuscular Hemoglobin 32.7 pg (28.0-33.3); Mean Corpuscular Volume 99.7 fL (83.0-100.0); Platelet Count 100 K/mcL (140-400); Red Blood Count 3.91 M/mcL (3.82-4.97); Red Cell Distribution Width 13.1 % (11.5-14.5); White Blood Count 7.2 K/mcL (4.3-11.1)
[2021-01-21 07:58] LABS: BUN/Creatinine Ratio 15 (6-26); Blood Urea Nitrogen 15 mg/dL (8-23); Calcium 8.1 mg/dL (8.6-10.3); Carbon Dioxide 24 mEq/L (23-29); Chloride 104 mEq/L (98-107); Glucose 112 mg/dL (70-105); Magnesium 1.1 mg/dL (1.6-2.6); Osmolality,Calculated 288 (280-300); Potassium 3.7 mEq/L (3.5-5.1); Sodium 138 mEq/L (136-145); eGFR For African Americans > 60 (> 60); eGFR For Non-African Americans 53 (> 60)
[2021-01-21] MEDS: Insulin LISPRO 300 UNITS/3 ML VIAL SUBQ SCH ×3 (09:01→16:42)
[2021-01-21] MEDS: Cholecalciferol (D-3) 1,000 UNIT (25MCG) TABLET PO SCH (09:39)
[2021-01-21] MEDS: allopurinoL 100 MG TABLET PO SCH (09:39)
[2021-01-21] MEDS: Azithromycin 500 MG in 0.9 % Sodium Chloride 250 ML IVPB SCH (16:41)
[2021-01-21] MEDS: cefTRIAXone 2,000 MG in 0.9 % Sodium Chloride Mini Bag 100 ML IVPB SCH (16:41)
[2021-01-22] MEDS: Cholecalciferol (D-3) 1,000 UNIT (25MCG) TABLET PO SCH (08:39)
[2021-01-22] MEDS: allopurinoL 100 MG TABLET PO SCH (08:39)
[2021-01-22] MEDS: Insulin LISPRO 300 UNITS/3 ML VIAL SUBQ SCH ×3 (09:16→16:47)
[2021-01-22] MEDS ORDERED: *HR* LORazepam 0.5 MG TABLET PO PRN (14:04)
[2021-01-22] MEDS: cefTRIAXone 2,000 MG in 0.9 % Sodium Chloride Mini Bag 100 ML IVPB SCH (16:31)
[2021-01-22] MEDS: Azithromycin 500 MG in 0.9 % Sodium Chloride 250 ML IVPB SCH (17:26)
[2021-01-22] MEDS ORDERED: QUEtiapine Fumarate 25 MG TABLET PO SCH (21:00)
[2021-01-23 07:04] VITALS: BP 135/88
[2021-01-23] MEDS: Cholecalciferol (D-3) 1,000 UNIT (25MCG) TABLET PO SCH (08:38)
[2021-01-23] MEDS: Insulin LISPRO 300 UNITS/3 ML VIAL SUBQ SCH ×3 (08:38→16:51)
[2021-01-23] MEDS: allopurinoL 100 MG TABLET PO SCH (08:38)
[2021-01-23] MEDS: cefTRIAXone 2,000 MG in 0.9 % Sodium Chloride Mini Bag 100 ML IVPB SCH (16:48)
[2021-01-23] MEDS: Azithromycin 500 MG in 0.9 % Sodium Chloride 250 ML IVPB SCH (16:48)
== END 2021-01-23 18:35 | disposition other institution (70) | DRG 194 ==
LOC: INPPIK 14:07 → EMEROOPIK 14:07 → INPPIK 17:20
PROVIDERS: ADMIT Family Medicine; ATTEND Family Medicine

== ENCOUNTER 2021-01-23 16:40 | Inpatient (IN) ==
[2021-01-23] MEDS ORDERED: Nitroglycerin 0.4 MG TAB.SUBL SL SCH (18:00)
[2021-01-23] MEDS ORDERED: Nitroglycerin 0.4 MG TAB.SUBL SL PRN (18:20)
[2021-01-23] MEDS: QUEtiapine Fumarate 25 MG TABLET PO SCH (20:04)
[2021-01-24 06:39] LABS: Basophils % 0.5 %; Eosinophils # 0.2 K/mcL (0.0-0.6); Eosinophils % 3.1 %; Hematocrit 39.8 % (35.3-44.9); Hemoglobin 13.5 g/dL (11.5-15.4); Immature Granulocytes % 0.2 % (0-4); Lymphocytes # 1.6 K/mcL (0.6-4.6); Lymphocytes % 25.7 %; Mean Corpuscular HGB Conc 33.9 g/dL (31.6-35.5); Mean Corpuscular Hemoglobin 32.8 pg (28.0-33.3); Mean Corpuscular Volume 96.6 fL (83.0-100.0); Monocytes # 0.7 K/mcL (0.0-1.3); Monocytes % 10.9 %; Neutrophils # 3.6 K/mcL (1.6-8.9); Red Blood Count 4.12 M/mcL (3.82-4.97); Segmented Neutrophils % 59.6 %
[2021-01-24 06:40] LABS: Platelet Count 91 K/mcL (140-400)
[2021-01-24 06:53] LABS: Large Platelets Present (Not Present); Platelet Estimate Marked Decrease (Normal)
[2021-01-24 06:58] LABS: BUN/Creatinine Ratio 16 (6-26); Blood Urea Nitrogen 17 mg/dL (8-23); Calcium 9.2 mg/dL (8.6-10.3); Carbon Dioxide 27 mEq/L (23-29); Chloride 105 mEq/L (98-107); Glucose 217 mg/dL (70-105); Osmolality,Calculated 302 (280-300); Potassium 3.8 mEq/L (3.5-5.1); Sodium 142 mEq/L (136-145); eGFR For African Americans > 60 (> 60); eGFR For Non-African Americans 50 (> 60)
[2021-01-24] MEDS ORDERED: *HR* Metformin 500 MG TABLET PO SCH ×2 (08:00→17:00)
[2021-01-24] MEDS ORDERED: *HR* SitaGLIPtin 25 MG TABLET PO SCH (08:00)
[2021-01-24] MEDS: Cholecalciferol (D-3) 1,000 UNIT (25MCG) TABLET PO SCH (08:40)
[2021-01-24] MEDS: amLODIPine 5 MG TABLET PO SCH (08:41)
[2021-01-24] MEDS: Furosemide 20 MG TABLET PO SCH (08:42)
[2021-01-24] MEDS: allopurinoL 100 MG TABLET PO SCH (08:42)
[2021-01-24] MEDS ORDERED: *HR* Dextrose 50 % in Water (Vial) 50 ML VIAL IVP PRN (09:48)
[2021-01-24] MEDS ORDERED: Dextrose Gel 15 GM/37.5 ML TUBE PO PRN ×2 (09:48)
[2021-01-24] MEDS ORDERED: D5% in Water 1,000 ML IVC PRN (09:48)
[2021-01-24] MEDS: Insulin LISPRO 300 UNITS/3 ML VIAL SUBQ SCH ×3 (11:11→21:03)
[2021-01-24] MEDS: *HR* Metformin 500 MG TABLET PO SCH (16:12)
[2021-01-24] MEDS: QUEtiapine Fumarate 25 MG TABLET PO SCH (21:04)
[2021-01-25] MEDS: *HR* Metformin 500 MG TABLET PO SCH ×2 (08:53→16:44)
[2021-01-25] MEDS: Cholecalciferol (D-3) 1,000 UNIT (25MCG) TABLET PO SCH (08:53)
[2021-01-25] MEDS: allopurinoL 100 MG TABLET PO SCH (08:53)
[2021-01-25] MEDS: amLODIPine 5 MG TABLET PO SCH (08:53)
[2021-01-25] MEDS: Insulin LISPRO 300 UNITS/3 ML VIAL SUBQ SCH ×4 (08:53→20:35)
[2021-01-25] MEDS: *HR* SitaGLIPtin 25 MG TABLET PO SCH (08:53)
[2021-01-25] MEDS: Furosemide 20 MG TABLET PO SCH (08:53)
[2021-01-25] MEDS: QUEtiapine Fumarate 25 MG TABLET PO SCH (20:35)
[2021-01-26] MEDS: amLODIPine 5 MG TABLET PO SCH (08:59)
[2021-01-26] MEDS: *HR* SitaGLIPtin 25 MG TABLET PO SCH (08:59)
[2021-01-26] MEDS: Furosemide 20 MG TABLET PO SCH (08:59)
[2021-01-26] MEDS: Insulin LISPRO 300 UNITS/3 ML VIAL SUBQ SCH ×4 (09:00→20:50)
[2021-01-26] MEDS: allopurinoL 100 MG TABLET PO SCH (09:00)
[2021-01-26] MEDS: *HR* Metformin 500 MG TABLET PO SCH ×2 (09:00→17:54)
[2021-01-26] MEDS: Cholecalciferol (D-3) 1,000 UNIT (25MCG) TABLET PO SCH (09:00)
[2021-01-26] MEDS: QUEtiapine Fumarate 25 MG TABLET PO SCH (20:49)
[2021-01-27] MEDS: *HR* Metformin 500 MG TABLET PO SCH ×2 (08:00→17:19)
[2021-01-27] MEDS: Cholecalciferol (D-3) 1,000 UNIT (25MCG) TABLET PO SCH (08:00)
[2021-01-27] MEDS: Furosemide 20 MG TABLET PO SCH (08:01)
[2021-01-27] MEDS: allopurinoL 100 MG TABLET PO SCH (08:01)
[2021-01-27] MEDS: *HR* SitaGLIPtin 25 MG TABLET PO SCH (08:01)
[2021-01-27] MEDS: amLODIPine 5 MG TABLET PO SCH (08:02)
[2021-01-27] MEDS: Insulin LISPRO 300 UNITS/3 ML VIAL SUBQ SCH ×4 (08:07→20:19)
[2021-01-27] MEDS ORDERED: Acetaminophen 325 MG TABLET PO PRN (18:08)
[2021-01-27] MEDS ORDERED: Ondansetron ODT 4 MG TAB.RAPDIS SL PRN (18:20)
[2021-01-27] MEDS ORDERED: Ondansetron 4 MG/2 ML VIAL IVP PRN (18:40)
[2021-01-27] MEDS ORDERED: Acetaminophen 650 MG RECTAL SUPP RC PRN (18:48)
[2021-01-27 19:28] LABS: Basophils % 0.3 %; Eosinophils # 0.2 K/mcL (0.0-0.6); Eosinophils % 2.1 %; Hematocrit 41.6 % (35.3-44.9); Hemoglobin 13.9 g/dL (11.5-15.4); Immature Granulocytes % 0.5 % (0-4); Lymphocytes # 0.8 K/mcL (0.6-4.6); Lymphocytes % 8.6 %; Mean Corpuscular HGB Conc 33.4 g/dL (31.6-35.5); Mean Corpuscular Hemoglobin 32.7 pg (28.0-33.3); Mean Corpuscular Volume 97.9 fL (83.0-100.0); Mean Platelet Volume 11.2 fL (9.4-12.4); Monocytes # 0.7 K/mcL (0.0-1.3); Monocytes % 7.8 %; Neutrophils # 7.5 K/mcL (1.6-8.9); Platelet Count 120 K/mcL (140-400); Red Blood Count 4.25 M/mcL (3.82-4.97); Red Cell Distribution Width 13.2 % (11.5-14.5); Segmented Neutrophils % 80.7 %; White Blood Count 9.3 K/mcL (4.3-11.1)
[2021-01-27 19:33] LABS: Albumin 4.2 g/dL (3.5-5.7); Albumin/Globulin Ratio 1.6 (1.1-2.2); Bilirubin,Total 0.5 mg/dL (0.3-1.0); Calcium 9.8 mg/dL (8.6-10.3); Globulin 2.6 g/dL (2.4-3.5); Potassium 3.7 mEq/L (3.5-5.1); Total Protein 6.8 g/dL (6.4-8.9)
[2021-01-27] MEDS: QUEtiapine Fumarate 25 MG TABLET PO SCH (20:18)
[2021-01-28] MEDS: amLODIPine 5 MG TABLET PO SCH (07:55)
[2021-01-28] MEDS: Furosemide 20 MG TABLET PO SCH (07:55)
[2021-01-28] MEDS: allopurinoL 100 MG TABLET PO SCH (07:55)
[2021-01-28] MEDS: *HR* SitaGLIPtin 25 MG TABLET PO SCH (07:55)
[2021-01-28] MEDS: *HR* Metformin 500 MG TABLET PO SCH ×2 (07:55→16:52)
[2021-01-28] MEDS: Cholecalciferol (D-3) 1,000 UNIT (25MCG) TABLET PO SCH (07:55)
[2021-01-28] MEDS: Insulin LISPRO 300 UNITS/3 ML VIAL SUBQ SCH ×4 (07:56→20:14)
[2021-01-28] MEDS: QUEtiapine Fumarate 25 MG TABLET PO SCH (20:14)
[2021-01-29] MEDS: Furosemide 20 MG TABLET PO SCH (08:37)
[2021-01-29] MEDS: *HR* SitaGLIPtin 25 MG TABLET PO SCH (08:37)
[2021-01-29] MEDS: allopurinoL 100 MG TABLET PO SCH (08:37)
[2021-01-29] MEDS: amLODIPine 5 MG TABLET PO SCH (08:37)
[2021-01-29] MEDS: *HR* Metformin 500 MG TABLET PO SCH ×2 (08:37→16:44)
[2021-01-29] MEDS: Cholecalciferol (D-3) 1,000 UNIT (25MCG) TABLET PO SCH (08:37)
[2021-01-29] MEDS: Insulin LISPRO 300 UNITS/3 ML VIAL SUBQ SCH ×4 (08:38→20:46)
[2021-01-29] MEDS: Nystatin Cream 15 GM TUBE TP SCH ×2 (11:21→20:46)
[2021-01-29] MEDS: QUEtiapine Fumarate 25 MG TABLET PO SCH (20:46)
[2021-01-30] MEDS: Cholecalciferol (D-3) 1,000 UNIT (25MCG) TABLET PO SCH (08:19)
[2021-01-30] MEDS: Nystatin Cream 15 GM TUBE TP SCH ×2 (08:19→21:06)
[2021-01-30] MEDS: amLODIPine 5 MG TABLET PO SCH (08:20)
[2021-01-30] MEDS: allopurinoL 100 MG TABLET PO SCH (08:20)
[2021-01-30] MEDS: Furosemide 20 MG TABLET PO SCH (08:20)
[2021-01-30] MEDS: *HR* Metformin 500 MG TABLET PO SCH ×2 (08:20→17:07)
[2021-01-30] MEDS: *HR* SitaGLIPtin 25 MG TABLET PO SCH (08:20)
[2021-01-30] MEDS: Insulin LISPRO 300 UNITS/3 ML VIAL SUBQ SCH ×4 (08:22→20:47)
[2021-01-30] MEDS: QUEtiapine Fumarate 25 MG TABLET PO SCH (21:06)
[2021-01-31] MEDS: Insulin LISPRO 300 UNITS/3 ML VIAL SUBQ SCH ×4 (07:28→19:50)
[2021-01-31] MEDS: *HR* SitaGLIPtin 25 MG TABLET PO SCH (10:06)
[2021-01-31] MEDS: Furosemide 20 MG TABLET PO SCH (10:06)
[2021-01-31] MEDS: allopurinoL 100 MG TABLET PO SCH (10:06)
[2021-01-31] MEDS: Cholecalciferol (D-3) 1,000 UNIT (25MCG) TABLET PO SCH (10:06)
[2021-01-31] MEDS: *HR* Metformin 500 MG TABLET PO SCH ×2 (10:07→16:14)
[2021-01-31] MEDS: amLODIPine 5 MG TABLET PO SCH (10:07)
[2021-01-31] MEDS: Nystatin Cream 15 GM TUBE TP SCH ×2 (10:10→19:52)
[2021-01-31] MEDS: QUEtiapine Fumarate 25 MG TABLET PO SCH (19:52)
[2021-02-01] MEDS: Insulin LISPRO 300 UNITS/3 ML VIAL SUBQ SCH ×4 (07:44→20:02)
[2021-02-01] MEDS: *HR* SitaGLIPtin 25 MG TABLET PO SCH (10:06)
[2021-02-01] MEDS: allopurinoL 100 MG TABLET PO SCH (10:06)
[2021-02-01] MEDS: Furosemide 20 MG TABLET PO SCH (10:06)
[2021-02-01] MEDS: *HR* Metformin 500 MG TABLET PO SCH ×2 (10:06→16:48)
[2021-02-01] MEDS: Cholecalciferol (D-3) 1,000 UNIT (25MCG) TABLET PO SCH (10:06)
[2021-02-01] MEDS: amLODIPine 5 MG TABLET PO SCH (10:07)
[2021-02-01] MEDS: Nystatin Cream 15 GM TUBE TP SCH ×2 (10:08→20:03)
[2021-02-01] MEDS: QUEtiapine Fumarate 25 MG TABLET PO SCH (20:03)
[2021-02-02] MEDS: *HR* Metformin 500 MG TABLET PO SCH ×2 (08:39→16:44)
[2021-02-02] MEDS: Cholecalciferol (D-3) 1,000 UNIT (25MCG) TABLET PO SCH (08:39)
[2021-02-02] MEDS: amLODIPine 5 MG TABLET PO SCH (08:40)
[2021-02-02] MEDS: Insulin LISPRO 300 UNITS/3 ML VIAL SUBQ SCH ×4 (08:40→21:18)
[2021-02-02] MEDS: allopurinoL 100 MG TABLET PO SCH (08:40)
[2021-02-02] MEDS: Furosemide 20 MG TABLET PO SCH (08:40)
[2021-02-02] MEDS: *HR* SitaGLIPtin 25 MG TABLET PO SCH (08:40)
[2021-02-02] MEDS: Nystatin Cream 15 GM TUBE TP SCH ×2 (08:47→21:19)
[2021-02-02] MEDS: QUEtiapine Fumarate 25 MG TABLET PO SCH (21:19)
[2021-02-03 07:16] VITALS: BP 124/85
[2021-02-03] MEDS: Insulin LISPRO 300 UNITS/3 ML VIAL SUBQ SCH ×2 (09:08→11:51)
[2021-02-03] MEDS: *HR* Metformin 500 MG TABLET PO SCH (09:09)
[2021-02-03] MEDS: Nystatin Cream 15 GM TUBE TP SCH (09:09)
[2021-02-03] MEDS: Cholecalciferol (D-3) 1,000 UNIT (25MCG) TABLET PO SCH (09:09)
[2021-02-03] MEDS: allopurinoL 100 MG TABLET PO SCH (09:09)
[2021-02-03] MEDS: *HR* SitaGLIPtin 25 MG TABLET PO SCH (09:10)
[2021-02-03] MEDS: amLODIPine 5 MG TABLET PO SCH (09:10)
[2021-02-03] MEDS: Furosemide 20 MG TABLET PO SCH (09:10)
== END 2021-02-03 13:35 | disposition home health service (06) | DRG 945 ==
LOC: INPPIK 18:36
PROVIDERS: ADMIT Family Medicine; ATTEND Family Medicine